=== PATIENT | male | born 1945 | race Caucasian/White ===

== ENCOUNTER 2019-10-14 07:50 | Day surgery (SDC) | payer OTHER ==
[2019-10-13 16:04] VITALS: BMI 34.4
[~2019-10-14 07:50] MED LIST: ACETAMINOPHEN 325 MG TABLET (FP) PO PRN; CIPROFLOXACIN HCL 0.3% OPHTH 2.5ML BOTTLE OP SCH; KETOROLAC TROMETHAMINE 0.5% EYE DROP 1 DROP DROPS OP SCH; PHENYLEPHRINE 2.5% OPHTH SOLN 15 ML BOTTLE OP SCH; TOBRAMYCIN/DEXAMETHASONE OPHTH. OINTMENT 1 TUBE TP ONE; TROPICAMIDE 1% OPHTH SOLN 15 ML BOTTLE OP SCH
[2019-10-14] MEDS ORDERED: CIPROFLOXACIN HCL 0.3% OPHTH 2.5ML BOTTLE ONE (08:43)
[2019-10-14] MEDS ORDERED: PHENYLEPHRINE 2.5% OPHTH SOLN 15 ML BOTTLE ONE (08:43)
[2019-10-14] MEDS ORDERED: KETOROLAC TROMETHAMINE 0.5% EYE DROP 1 DROP DROPS ONE (08:43)
[2019-10-14] MEDS ORDERED: TROPICAMIDE 1% OPHTH SOLN 15 ML BOTTLE ONE (08:43)
[2019-10-14] MEDS ORDERED: CIPROFLOXACIN HCL 0.3% OPHTH 2.5ML BOTTLE OD ONE ×3 (09:30→09:50)
[2019-10-14] MEDS ORDERED: KETOROLAC TROMETHAMINE 0.5% EYE DROP 1 DROP DROPS OD ONE ×3 (09:30→09:50)
[2019-10-14] MEDS ORDERED: PHENYLEPHRINE 2.5% OPHTH SOLN 15 ML BOTTLE OD ONE ×3 (09:30→09:50)
[2019-10-14] MEDS ORDERED: TROPICAMIDE 1% OPHTH SOLN 15 ML BOTTLE OD ONE ×3 (09:30→09:50)
[2019-10-14] MEDS ORDERED: ONDANSETRON 4 MG/2 ML VIAL IVPUSH PRN (10:55)
[2019-10-14] MEDS ORDERED: LACTATED RINGERS SOLUTION 1,000 ML IV SCH (11:00)
[2019-10-14] MEDS ORDERED: MIDAZOLAM HCL 2 MG/2 ML SINGLE DOSE VIAL ONE (11:00)
--- NOTE | 2019-10-14 11:08 | HP ---
- Patient Scheduled date of Surgery: 10/14/19 Scheduled Surgical Procedure: Phacoemulsification and cataract extraction with PCIOL Affected Eye: Right Chief Complaint (Indication for surgery): Decreased vision affecting ADLs - Ocular History Other Eye History: Other (NPDR, glaucoma suspect, pingueculum) Eye Medications: vigamox Previous Eye Surgery: none - Medical History Illnesses: Hypertension, Hypercholesterolemia, Diabetes Current Medications: Ambulatory Orders Amlodipine Besylate 5 mg PO DAILY 10/13/19 Gemfibrozil [Lopid -] 600 mg PO BID 10/13/19 Glimepiride 2 mg PO DAILY 10/13/19 Losartan Potassium 50 mg PO DAILY 10/13/19 Metoprolol Tartrate 50 mg PO DAILY 10/13/19 Omeprazole 20 mg PO DAILY 10/13/19 Simvastatin 40 mg PO DAILY 10/13/19 Sitagliptin Phosphate [Januvia] 100 mg PO DAILY 10/13/19 Allergies/Adverse Reactions: Allergies Allergy/AdvReac Type Severity Reaction Status Date / Time No Known Drug Allergies Allergy Verified 10/14/19 09:04 Ocular Examination - Best Corrected Visual Acuity Distance: Right eye: CF Distance: Left eye: 20/100 - External/Slit Lamp Examination Abnormalities: floppy eyelid, pingueculum - Intraocular Pressure Intraocular Pressure - Right eye: 12 Intraocular Pressure-Left eye: 14 - Lens Lens: 2-3+ cortical 2+ NS - Vitreous/Retina Vitreous/Retina: C:D 0.4 m/v/p wnl - Special Examination M - Right eye: +1.75-0.75 x 075 M - Left eye: +0.50-0.25 x 005 K - Right eye: 42.5/43 x 180 K - Left eye: 42.25/42.50 x 175 AL - Right eye: 24.36 AL - Left eye: 25.10 IOL bag: +19.5 AUOOTO IOL sulcus: +18.5 MN60 AC IOL AC: +16.5 MTA 4U0 - Impression Impression: Cataract Right Eye (cortical) - Plan Plan: Phacoemulsification and cataract extraction - IOL Right eye Post-hospital care will be provided in office on: 10/15/19
--- NOTE | 2019-10-14 11:10 | HP ---
History & Physical Update - History History: No Change - Physical Physical: No Change - Assessment Assessment: No Change - Plan Plan: No Change (H and P reviewed by Dr. Breaux from 10/12/2019 no changes)
[2019-10-14] MEDS ORDERED: TETRACAINE 0.5% OPHTH SOLN 2 ML BOTTLE TP ONE (11:28)
[2019-10-14] MEDS ORDERED: LIDOCAINE HCL 1% PRESERVATIVE FREE - 30ML VIAL IO ONE (11:33)
[2019-10-14] MEDS ORDERED: CHONDROITIN SU A/HYALUR SOD 1 KIT IO ONE ×2 (11:34)
[2019-10-14] MEDS ORDERED: EPINEPHrine/PF 1 MG/1 ML (1:1,000) AMPULE SQ ONE (11:36)
[2019-10-14] MEDS ORDERED: TOBRAMYCIN/DEXAMETHASONE OPHTH. OINTMENT 1 TUBE TP ONE (12:05)
--- NOTE | 2019-10-14 12:11 | OP ---
Ophthalmology Operative Note Pre-Operative Diagnosis: Cataract (cortical) Affected Eye: Right Operation: Phacoemulsification and cataract extraction with PCIOL Findings: cortical cataract , floppy iris Post-Operative Diagnosis: Same as Pre-op Consolidator: None Anesthesiologist: Lakisha Borrego Anesthesia: Topical Specimens Removed: none Estimated blood loss: < 1 cc Drains & Tubes with Location: none Operative Report Dictated: Yes
[2019-10-14 12:23] VITALS: BP 156/72; PULSE 59; TEMP 98.2
--- NOTE | 2019-10-14 12:44 | OP ---
DATE OF OPERATION: DATE OF DICTATION: 10/14/2019 PREOPERATIVE DIAGNOSIS: Cortical cataract, right eye. POSTOPERATIVE DIAGNOSIS: Cortical cataract, right eye. PROCEDURE: Phacoemulsification and cataract extraction with insertion of posterior chamber intraocular lens, right eye. SURGEON: Tamanna Riggs MD RENAL MEDICINE SPECIALIST: None. ANESTHESIA: Topical. ANESTHESIOLOGIST: Anum Mansfield CRNA OPERATIVE PROCEDURE: The patient received Tetracaine eye drops and was gently sedated and prepped and draped in the usual sterile fashion so as to expose only the right eye. Ophthalmic Betadine was instilled into the inferior fornix and lashes were taped out of the surgical field. An eyelid speculum was placed into the right eye. Paracentesis was made in superior temporal clear cornea at the limbus. Then, 0.5 mL of nonpreserved lidocaine 1% was injected into the anterior chamber and then 1 mL of dilute epinephrine 1:10,000 was injected into the anterior chamber to improve pupillary dilation. Viscoelastic material was instilled into the anterior chamber via the paracentesis. A 2.4-mm keratome blade was then used to create the main incision in temporal clear cornea at the limbus. A continuous curvilinear capsulorhexis was performed using a cystotome and Utrata forceps. Hydrodissection of the lens cortex was performed using BSS on a cannula until the nucleus was noted to be freely rotating. The phacoemulsification tip was then inserted via the main wound and used to scope 2 perpendicular grooves into the lens nucleus. The nucleus was cracked into 4 quadrants. Each quadrant was lifted out of the capsule into the iris plane and individually phacoemulsified. The remaining cortical material was then aspirated using the irrigation/aspiration port. The capsular bag was inflated using ProVisc and a preloaded AcrySof lens model [id number] power +19.5 diopters was injected into the capsular bag. It was centered using a Sinskey hook. The residual viscoelastic material was removed from the anterior chamber using irrigation and aspiration. The wound edges were hydrated using BSS. The wound was tested for leakage and was found to be watertight. Tobradex ointment was placed in the eye , and the speculum was removed from the eye, and the eyelid was closed. A sterile dressing and shield were placed over the eye. The patient was transferred to the recovery room in stable condition, told to follow up in 1 day. Heidy [id number] MTDD
== END 2019-10-14 13:11 | disposition home or self-care (01) ==
LOC: JASU-SURG 07:50
PROVIDERS: ATTEND Ophthalmology
PROC: 08RJ3JZ Replacement of Right Lens with Synthetic Substitute, Percutaneous Approach (ICD-10-PCS; principal; 2019-10-14 10:30)
DX: H26.9 Unspecified cataract (principal); I10 Essential (primary) hypertension; E11.9 Type 2 diabetes mellitus without complications
CPT/HCPCS: 82962

== ENCOUNTER 2019-11-04 06:43 | Day surgery (SDC) | payer OTHER ==
[2019-11-03 15:12] VITALS: BMI 34.4
[~2019-11-04 06:43] MED LIST changes: -ACETAMINOPHEN 325 MG TABLET (FP) PO PRN; -CIPROFLOXACIN HCL 0.3% OPHTH 2.5ML BOTTLE OP SCH; +EPINEPHrine/PF 1 MG/1 ML (1:1,000) AMPULE SQ ONE; -KETOROLAC TROMETHAMINE 0.5% EYE DROP 1 DROP DROPS OP SCH; -PHENYLEPHRINE 2.5% OPHTH SOLN 15 ML BOTTLE OP SCH; -TOBRAMYCIN/DEXAMETHASONE OPHTH. OINTMENT 1 TUBE TP ONE; -TROPICAMIDE 1% OPHTH SOLN 15 ML BOTTLE OP SCH
[2019-11-04] MEDS ORDERED: CIPROFLOXACIN HCL 0.3% OPHTH 2.5ML BOTTLE OP SCH (06:45)
[2019-11-04] MEDS ORDERED: TROPICAMIDE 1% OPHTH SOLN 15 ML BOTTLE OP SCH (06:45)
[2019-11-04] MEDS ORDERED: ACETAMINOPHEN 325 MG TABLET (FP) PO PRN (06:45)
[2019-11-04] MEDS ORDERED: KETOROLAC TROMETHAMINE 0.5% EYE DROP 1 DROP DROPS OP SCH (06:45)
[2019-11-04] MEDS ORDERED: PHENYLEPHRINE 2.5% OPHTH SOLN 15 ML BOTTLE OP SCH (06:45)
[2019-11-04] MEDS ORDERED: TROPICAMIDE 1% OPHTH SOLN 15 ML BOTTLE ONE (07:07)
[2019-11-04] MEDS ORDERED: PHENYLEPHRINE 2.5% OPHTH SOLN 15 ML BOTTLE OS ONE ×3 (07:30→07:50)
[2019-11-04] MEDS ORDERED: TROPICAMIDE 0.5% OPHTHALMIC SOLN 15 ML BOTTLE OS ONE (07:30)
[2019-11-04] MEDS ORDERED: KETOROLAC TROMETHAMINE 0.5% EYE DROP 1 DROP DROPS OS ONE ×3 (07:30→07:50)
[2019-11-04] MEDS ORDERED: CIPROFLOXACIN 0.3% EYE DROPS 5 ML BOTTLE OS ONE (07:30)
[2019-11-04 07:31] VITALS: TEMP 98
[2019-11-04] MEDS ORDERED: TROPICAMIDE 1% OPHTH SOLN 15 ML BOTTLE OS ONE ×2 (07:40→07:50)
[2019-11-04] MEDS ORDERED: CIPROFLOXACIN HCL 0.3% OPHTH 2.5ML BOTTLE OS ONE ×2 (07:40→07:50)
[2019-11-04] MEDS ORDERED: TOBRAMYCIN/DEXAMETHASONE OPHTH. OINTMENT 1 TUBE ONE (08:30)
[2019-11-04] MEDS ORDERED: LIDOCAINE HCL/PF 2% SDV 5ML VIAL ONE (08:31)
[2019-11-04] MEDS ORDERED: ACETYLCHOLINE 1:100 INTRA-OCUL 20 MG/2 ML KIT ONE (08:31)
[2019-11-04] MEDS ORDERED: BUPIVACAINE HCL/PF 0.75% 10 ML VIAL ONE (08:31)
[2019-11-04] MEDS ORDERED: TRYPAN BLUE 0.5 ML DISP.SYRIN ONE (08:31)
[2019-11-04] MEDS ORDERED: TETRACAINE 0.5% OPHTH SOLN 2 ML BOTTLE ONE (08:31)
[2019-11-04] MEDS ORDERED: POVIDONE-IODINE 5% OPHTHALMIC PREP 30 ML SOLUTION ONE (08:31)
[2019-11-04] MEDS ORDERED: EPINEPHrine/PF 1 MG/1 ML (1:1,000) AMPULE ONE (08:32)
--- NOTE | 2019-11-04 08:37 | HP ---
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 Medications: vigamox , prolensa Previous Eye Surgery: s/p ce/pciol OD - Medical History Illnesses: Hypertension, Hypercholesterolemia, Diabetes Current Medications: Ambulatory Orders Amlodipine Besylate 5 mg PO DAILY 10/13/19 Gemfibrozil [Lopid -] 600 mg PO BID 10/13/19 Glimepiride 2 mg PO DAILY 10/13/19 Losartan Potassium 50 mg PO DAILY 10/13/19 Metoprolol Tartrate 50 mg PO DAILY 10/13/19 Omeprazole 20 mg PO DAILY 10/13/19 Simvastatin 40 mg PO DAILY 10/13/19 Sitagliptin Phosphate [Januvia] 100 mg PO DAILY 10/13/19 Amlodipine Besylate 5 mg PO DAILY 11/04/19 Allergies/Adverse Reactions: Allergies Allergy/AdvReac Type Severity Reaction Status Date / Time No Known Drug Allergies Allergy Verified 11/04/19 07:26 Ocular Examination - Best Corrected Visual Acuity Distance: Right eye: 20/50 Distance: Left eye: 20/200 - External/Slit Lamp Examination Abnormalities: floppy eyelid, pingueculum - Intraocular Pressure Intraocular Pressure - Right eye: 15 Intraocular Pressure-Left eye: 15 - Lens Lens: 2+ NS 2-3+ cortical change - Vitreous/Retina Vitreous/Retina: C:D 0.4 macular edema, rare dot blot heme - Special Examination M - Right eye: +0.75 -2.00 x 100 M - Left eye: +0.50-0.25 x 005 K - Right eye: 43.5/44.75 x020 K - Left eye: 41.75/42.50 x180 AL - Right eye: 24.36 AL - Left eye: 25.10 IOL bag: +18.5 AUOOTO IOL sulcus: +18.0 MN60AC IOL AC: +16.0 MTA 4UO - Impression Impression: Cataract Left Eye (cortical) - Plan Plan: Phacoemulsification and cataract extraction - IOL Left eye Post-hospital care will be provided in office on: 11/05/19
--- NOTE | 2019-11-04 08:38 | HP ---
History & Physical Update - History History: No Change - Physical Physical: No Change - Assessment Assessment: No Change - Plan Plan: No Change (Reviewed Dr. Breaux's H and P from 10/12/2019 no changes)
[2019-11-04] MEDS ORDERED: MIDAZOLAM HCL 2 MG/2 ML SINGLE DOSE VIAL ONE (08:59)
[2019-11-04] MEDS ORDERED: PROPOFOL 20 ML ONE (09:00)
[2019-11-04] MEDS ORDERED: BUPIVACAINE HCL/PF 0.75% 10 ML VIAL RB ONE (09:07)
[2019-11-04] MEDS ORDERED: LIDOCAINE HCL/PF 2% SDV 5ML VIAL INF ONE (09:07)
[2019-11-04] MEDS ORDERED: SUCCINYLCHOLINE CHLORIDE 200 MG/10 ML SYRINGE ONE (09:14)
[2019-11-04] MEDS ORDERED: EPINEPHrine/PF 1 MG/1 ML (1:1,000) AMPULE SQ ONE ×3 (09:18→09:42)
[2019-11-04] MEDS ORDERED: CHONDROITIN SU A/HYALUR SOD 1 KIT IO ONE (09:19)
--- NOTE | 2019-11-04 11:08 | OP ---
Ophthalmology Operative Note Pre-Operative Diagnosis: Cataract (cortical) Affected Eye: Left Operation: Phacoemulsification and cataract extraction with PCIOL Findings: cortical cataract left eye Post-Operative Diagnosis: Same as Pre-op Dining Car Waiter/Waitress: None Anesthesiologist: Marianne Terry Anesthesia: Retrobulbar Specimens Removed: none Estimated blood loss: < 1cc Drains & Tubes with Location: none Operative Report Dictated: Yes
--- NOTE | 2019-11-04 13:03 | OP ---
DATE OF OPERATION: DATE OF DICTATION: 11/04/2019 PREOPERATIVE DIAGNOSIS: Cortical cataract, left eye. POSTOPERATIVE DIAGNOSIS: Cortical cataract, left eye. PROCEDURE: Phacoemulsification and cataract extraction with insertion of posterior chamber intraocular lens, left eye. SURGEON: Tamanna Riggs MD STEEL INSPECTOR: None. ANESTHESIA: Retrobulbar block. ANESTHESIOLOGIST: Marianne Terry MD OPERATIVE PROCEDURE: Following satisfactory intravenous sedation, the patient received local anesthesia using a 50/50 mixture of lidocaine 2% and Marcaine 0.75%. A Van Lint lid block was delivered to the left eye using 4 mL of the mixture and a retrobulbar injection using 3 mL of the mixture. The patient was then prepped and draped in the usual sterile fashion so as to expose only the left eye. Ophthalmic Betadine was instilled into the inferior fornix, and the lashes were taped out of the surgical field. An eyelid speculum was placed in the left eye. Paracentesis was made in inferior clear cornea at the limbus. A 1 mL of dilute epinephrine 1:10,000 was injected into the anterior chamber. Viscoelastic material was instilled into the anterior chamber via the paracentesis. A 2.4-mm keratome was then used to create the main incision in temporal clear cornea at the limbus. A continuous curvilinear capsulorrhexis was performed using a cystotome and Utrata forceps. Hyrodissection of the lens cortex was performed using BSS on a cannula until the nucleus was noted to be freely rotating. The phacoemulsification tip was then inserted via the main wound and used to sculpt 2 perpendicular grooves into the lens nucleus. The nucleus was cracked into 4 quadrants. Each quadrant was lifted out of the capsule into the iris plane and individually phacoemulsified. The remaining cortical material was then aspirated using the irrigation and aspiration port. The capsular bag was inflated using Provisc, and a preloaded H[employer] lens model [id number], power +18.5 diopter was injected into the capsular bag and centered using a Sinskey hook. The wound was tested for leakage. It was found to be watertight. However, one 10-0 nylon suture was placed across the wound because the patient will need subsequent intravitreal injections. Tobradex ointment was placed into the eye, and a speculum was removed from the eye, and the eyelid was closed. A sterile dressing and shield were placed over the eye, and the patient was transferred to the recovery room in stable condition, told to follow up in 1 day. TAMANNA RIGGS M.D. [id number]
[2019-11-04 14:29] VITALS: PULSE 58
[2019-11-04 14:33] VITALS: BP 180/70
== END 2019-11-04 10:50 | disposition home or self-care (01) ==
LOC: JASU-SURG 06:43
PROVIDERS: ATTEND Ophthalmology
PROC: 08RK3JZ Replacement of Left Lens with Synthetic Substitute, Percutaneous Approach (ICD-10-PCS; principal; 2019-11-04 09:00)
DX: H26.9 Unspecified cataract (principal); E11.9 Type 2 diabetes mellitus without complications; Z79.4 Long term (current) use of insulin
CPT/HCPCS: 82962